=== PATIENT | male | born 1965 | race Caucasian/White ===

== ENCOUNTER 2024-04-10 20:57 | Inpatient (IN) | payer BC, MEDICARE ==
[~2024-04-10] VITALS: Ht 182.9 cm; Wt 136.8 kg
[2024-04-10 21:37] LABS: BASOPHILS % (AUTO) 0.3 % (0-1); EOSINOPHILS # (AUTO) 0.2 X10'3 (0-0.9); EOSINOPHILS % (AUTO) 1.4 % (0-6); HEMATOCRIT 32.1 % (42.0-52.0); HEMOGLOBIN 9.8 g/dl (14.0-17.9); LYMPHOCYTES # (AUTO) 1.9 X10'3 (1.1-4.8); LYMPHOCYTES % (AUTO) 15.6 % (21-51); MEAN CORPUSCULAR HEMOGLOBIN 23.4 PG (27.0-31.0); MEAN CORPUSCULAR HGB CONC 30.6 g/dL (33.0-36.5); MEAN CORPUSCULAR VOLUME 76.7 FL (78-98); MEAN PLATELET VOLUME 6.5 FL (7.4-10.4); MONOCYTES # (AUTO) 1.2 X10'3 (0-0.9); MONOCYTES % (AUTO) 9.4 % (2-12); NEUTROPHILS # (AUTO) 9.2 X10'3 (1.8-7.7); NEUTROPHILS % (AUTO) 73.3 % (42-75); PLATELET COUNT 296 X10'3 (140-440); RED BLOOD COUNT 4.19 X10'6 (4.70-6.10); RED CELL DISTRIBUTION WIDTH 18.7 % (11.5-14.5); WHITE BLOOD COUNT 12.5 X10'3 (4.5-11.0)
[2024-04-10 21:53] LABS: ALANINE AMINOTRANSFERASE 17 U/L (12-78); ALBUMIN 2.5 G/DL (3.4-5.0); ALBUMIN/GLOBULIN RATIO 0.5 (1.1-1.5); ALKALINE PHOSPHATASE 87 IU/L (46-116); ANION GAP 8 (8-16); ASPARTATE AMINO TRANSFERASE 12 U/L (10-37); BILIRUBIN,TOTAL 0.3 MG/DL (0.1-1.0); BLOOD UREA NITROGEN 21 MG/DL (7-18); BUN/CREATININE RATIO 16.4 (10.0-20.0); CALCIUM 8.5 MG/DL (8.5-10.1); CHLORIDE 103 MMOL/L (99-107); CREATININE 1.28 MG/DL (0.60-1.10); GLUCOSE 93 MG/DL (70-104); MAGNESIUM 1.9 MG/DL (1.5-2.4); PHOSPHORUS 4.5 MG/DL (2.3-4.5); POTASSIUM 4.2 MMOL/L (3.5-5.1); SODIUM 139 MMOL/L (135-145); TOTAL CARBON DIOXIDE 28.1 MMOL/L (24-32); TOTAL PROTEIN 7.7 G/DL (6.4-8.2); eCRCL 64 ML/MIN; eGFR 58 ML/MIN
[2024-04-10] MEDS ORDERED: iohexol 300mg/ml 100ml inj. ONE (22:09)
[2024-04-10] MEDS: piperacillin/tazo 3.375gm/50ml 50 ML IV ONE (22:22)
[2024-04-10] MEDS ORDERED: GABA-530 PO (22:47)
[2024-04-10] MEDS ORDERED: QUET400T13 PO (22:47)
[2024-04-10] MEDS ORDERED: APIX5TAB3 PO (22:47)
[2024-04-10] MEDS ORDERED: DIVA-52 PO (22:47)
[2024-04-10] MEDS ORDERED: ASPI-1265 PO (22:47)
[2024-04-10] MEDS ORDERED: LISI20TA28 PO (22:47)
[2024-04-10] MEDS ORDERED: DULO-31 PO (22:47)
[2024-04-10] MEDS ORDERED: ATOR40TA PO (22:47)
[2024-04-10] MEDS ORDERED: MIRA50TA PO (22:47)
[2024-04-10] MEDS ORDERED: LOP25T PO (22:47)
[2024-04-10] MEDS ORDERED: BUME1TAB8 PO (22:47)
[2024-04-10] MEDS ORDERED: PANT-47 PO (22:47)
[2024-04-10 22:48] LABS: ANISOCYTOSIS 2+; MICROCYTOSIS 1+; PLATELET ESTIMATE NORMAL; POLYCHROMASIA FEW
[2024-04-10] MEDS: vancomycin/NS 1 GM ADD-VANTAGE 250 ML IV ONE (22:52)
[2024-04-10] MEDS ORDERED: ondansetron/PF 4mg/2ml inj IV PRN (23:10)
[2024-04-10] MEDS ORDERED: magnesium hydroxide 30ml (MOM) UD suspension PO PRN (23:10)
[2024-04-10] MEDS ORDERED: magnesium Cl slow-release 64mg tablet PO PRN (23:10)
[2024-04-10] MEDS ORDERED: potassium Cl 40MEQ/1/2NS 520ml 520 ML IV PRN (23:10)
[2024-04-10] MEDS ORDERED: acetaminophen 325mg tablet PO PRN (23:10)
[2024-04-10] MEDS ORDERED: magnesium 2GM in 50ml NS 50 ML IV PRN (23:10)
[2024-04-10] MEDS ORDERED: potassium Cl 20 mEq SR tablet PO PRN ×2 (23:10)
[2024-04-10] MEDS ORDERED: HYDROcodone/acetaminophen 5mg/325mg tablet PO PRN (23:10)
[2024-04-10] MEDS ORDERED: magnesium 4gm in 100ml NS 100 ML IV PRN (23:10)
[2024-04-10] MEDS ORDERED: morphine 2 MG/ML inj. syringe IV PRN ×2 (23:10)
[2024-04-10] MEDS: normal saline 1000ml 1,000 ML IV ONE (23:33)
[2024-04-11] VITALS (8 sets, daily range): BP systolic 142–156; BP diastolic 51–64; PULSE 53–90; RESP 16–18; TEMP 97–98.2; O2SAT 93–96
[2024-04-11] MEDS: vancomycin/NS 1 GM ADD-VANTAGE 250 ML IV ONE (00:06)
[2024-04-11] MEDS: normal saline 1000ml 1,000 ML IV SCH (01:45)
[2024-04-11] MEDS: piperacillin/tazo 4.5gm/100ml 100 ML IV SCH (05:35)
[2024-04-11] MEDS: K and/or MAG REPLACEMENT MC SCH (08:00)
[2024-04-11] MEDS: apixaban 5mg tablet PO SCH (08:00)
[2024-04-11] MEDS ORDERED: vancomycin/NS 1 GM ADD-VANTAGE 250 ML IV SCH ×2 (08:00→09:04)
[2024-04-11 08:15] LABS: APTT 34 SECONDS (22-32); INR 1.1 INR; PROTHROMBIN TIME 11.6 SECONDS (9.0-12.0)
[2024-04-11 08:28] LABS: BASOPHILS % (AUTO) 0.3 % (0-1); EOSINOPHILS # (AUTO) 0.2 X10'3 (0-0.9); EOSINOPHILS % (AUTO) 1.9 % (0-6); HEMOGLOBIN 9.8 g/dl (14.0-17.9); LYMPHOCYTES # (AUTO) 1.5 X10'3 (1.1-4.8); LYMPHOCYTES % (AUTO) 16.7 % (21-51); MEAN CORPUSCULAR HEMOGLOBIN 23.7 PG (27.0-31.0); MEAN CORPUSCULAR HGB CONC 30.6 g/dL (33.0-36.5); MEAN CORPUSCULAR VOLUME 77.4 FL (78-98); MEAN PLATELET VOLUME 6.7 FL (7.4-10.4); MONOCYTES # (AUTO) 0.8 X10'3 (0-0.9); MONOCYTES % (AUTO) 8.4 % (2-12); NEUTROPHILS # (AUTO) 6.6 X10'3 (1.8-7.7); NEUTROPHILS % (AUTO) 72.7 % (42-75); PLATELET COUNT 279 X10'3 (140-440); RED BLOOD COUNT 4.13 X10'6 (4.70-6.10); RED CELL DISTRIBUTION WIDTH 18.9 % (11.5-14.5)
[2024-04-11 08:50] LABS: ALANINE AMINOTRANSFERASE 15 U/L (12-78); ALBUMIN 2.4 G/DL (3.4-5.0); ALBUMIN/GLOBULIN RATIO 0.5 (1.1-1.5); ALKALINE PHOSPHATASE 82 IU/L (46-116); ANION GAP 11 (8-16); ASPARTATE AMINO TRANSFERASE 15 U/L (10-37); BILIRUBIN,TOTAL 0.4 MG/DL (0.1-1.0); BLOOD UREA NITROGEN 21 MG/DL (7-18); BUN/CREATININE RATIO 20.8 (10.0-20.0); CALCIUM 8.3 MG/DL (8.5-10.1); CHLORIDE 105 MMOL/L (99-107); CREATININE 1.01 MG/DL (0.60-1.10); GLUCOSE 87 MG/DL (70-104); PHOSPHORUS 4.3 MG/DL (2.3-4.5); SODIUM 142 MMOL/L (135-145); TOTAL CARBON DIOXIDE 26.3 MMOL/L (24-32); TOTAL PROTEIN 7.2 G/DL (6.4-8.2); eCRCL 81 ML/MIN; eGFR 76 ML/MIN
[2024-04-11 08:53] LABS: % IRON SATURATION 7 % (11-46); IRON 19 UG/DL (53-167); TOTAL IRON BINDING CAPACITY 260 UG/DL (259-388)
[2024-04-11] MEDS: vancomycin/NS 1 GM ADD-VANTAGE 250 ML IV SCH (09:06)
[2024-04-11 09:09] LABS: FERRITIN 17 NG/ML (26-388)
[2024-04-11] MEDS ORDERED: cloNIDine 0.1 mg tablet PO PRN (11:45)
[2024-04-11] MEDS: HYDROcodone/acetaminophen 10/325mg tab PO PRN (13:11)
[2024-04-11] MEDS: NICOTINE POLACRILEX 2 MG LOZENGE BC PRN (15:24)
[2024-04-11] MEDS ORDERED: CETI10CA PO (15:56)
[2024-04-11] MEDS ORDERED: MORP15TA60 PO (15:56)
[2024-04-11] MEDS ORDERED: DULA1.5P SUBCUT (15:56)
[2024-04-11] MEDS ORDERED: METO-395 PO (15:56)
[2024-04-11] MEDS ORDERED: METF-900 PO (15:56)
[2024-04-11] MEDS ORDERED: MULT-1085 PO (15:56)
[2024-04-11] MEDS ORDERED: DOCU-148 PO (15:56)
[2024-04-11] MEDS ORDERED: PANT-47 PO (15:56)
[2024-04-11] MEDS ORDERED: OXYC-150 PO (15:56)
[2024-04-11] MEDS ORDERED: BACL10TA PO (15:56)
[2024-04-11] MEDS ORDERED: INSU300I SQ (15:56)
[2024-04-12] MEDS: VANCOMYCIN LEVEL IV ONE (01:05)
[2024-04-12 01:44] VITALS: BP 150/67; PULSE 69; RESP 16; TEMP 98.6; O2SAT 97
[2024-04-12 06:00] VITALS: BP 126/66; PULSE 57; RESP 18; TEMP 96.8; O2SAT 97
[2024-04-12 07:34] LABS: BASOPHILS % (AUTO) 0.4 % (0-1); EOSINOPHILS # (AUTO) 0.1 X10'3 (0-0.9); EOSINOPHILS % (AUTO) 1.5 % (0-6); HEMATOCRIT 31.7 % (42.0-52.0); HEMOGLOBIN 9.9 g/dl (14.0-17.9); LYMPHOCYTES # (AUTO) 1.6 X10'3 (1.1-4.8); LYMPHOCYTES % (AUTO) 19.2 % (21-51); MEAN CORPUSCULAR HEMOGLOBIN 23.6 PG (27.0-31.0); MEAN CORPUSCULAR HGB CONC 31.1 g/dL (33.0-36.5); MEAN CORPUSCULAR VOLUME 75.9 FL (78-98); MEAN PLATELET VOLUME 6.8 FL (7.4-10.4); MONOCYTES # (AUTO) 0.6 X10'3 (0-0.9); MONOCYTES % (AUTO) 7.9 % (2-12); NEUTROPHILS # (AUTO) 5.8 X10'3 (1.8-7.7); PLATELET COUNT 288 X10'3 (140-440); RED BLOOD COUNT 4.17 X10'6 (4.70-6.10); RED CELL DISTRIBUTION WIDTH 19.1 % (11.5-14.5); WHITE BLOOD COUNT 8.1 X10'3 (4.5-11.0)
[2024-04-12 07:39] LABS: APTT 33 SECONDS (22-32); INR 1.1 INR; PROTHROMBIN TIME 11.6 SECONDS (9.0-12.0)
[2024-04-12 07:54] LABS: ALANINE AMINOTRANSFERASE 17 U/L (12-78); ALBUMIN 2.4 G/DL (3.4-5.0); ALBUMIN/GLOBULIN RATIO 0.5 (1.1-1.5); ALKALINE PHOSPHATASE 78 IU/L (46-116); ANION GAP 11 (8-16); ASPARTATE AMINO TRANSFERASE 14 U/L (10-37); BILIRUBIN,TOTAL 0.5 MG/DL (0.1-1.0); BLOOD UREA NITROGEN 11 MG/DL (7-18); BUN/CREATININE RATIO 12.2 (10.0-20.0); CALCIUM 8.6 MG/DL (8.5-10.1); CHLORIDE 103 MMOL/L (99-107); GLUCOSE 100 MG/DL (70-104); MAGNESIUM 1.9 MG/DL (1.5-2.4); PHOSPHORUS 3.2 MG/DL (2.3-4.5); POTASSIUM 4.2 MMOL/L (3.5-5.1); SODIUM 137 MMOL/L (135-145); TOTAL CARBON DIOXIDE 23.1 MMOL/L (24-32); TOTAL PROTEIN 7.3 G/DL (6.4-8.2); eCRCL 54 ML/MIN; eGFR 86 ML/MIN
[2024-04-12] MEDS: vancomycin/NS 1 GM ADD-VANTAGE 250 ML IV SCH (12:00)
[2024-04-12] MEDS: DULAGLUTIDE 1.5 MG/0.5 ML SQ SCH (12:40)
[2024-04-12] MEDS: PERFLUTREN PROTEIN-A MICROSPHR (Optison) 0.22 MG/ML 3ML VIAL IV ONE (12:45)
[2024-04-12] MEDS: duloxetine 30mg CAPSULE.DR PO SCH (13:36)
[2024-04-12] MEDS: oxyCODONE/APAP 10/325mg tablet PO PRN (13:36)
[2024-04-12] MEDS: lisinopril 20mg tablet PO SCH (13:36)
[2024-04-12] MEDS ORDERED: gabapentin 100mg capsule PO SCH (16:00)
[2024-04-12] MEDS: baclofen 10mg tablet PO SCH (16:42)
[2024-04-12 18:00] VITALS: BP_SYST 102; BP_SYST 161; BP_DIAS 61; BP_DIAS 64; PULSE 52; PULSE 82; RESP 18; RESP 20; TEMP 96.6; TEMP 97; O2SAT 90; O2SAT 98
[2024-04-12 20:00] VITALS: RESP 18; O2SAT 98
[2024-04-12] MEDS: METFORMIN HCL 500 MG PO SCH (20:00)
[2024-04-12] MEDS: bumetanide 1mg tablet PO SCH (21:53)
[2024-04-12] MEDS: quetiapine 100mg tablet PO SCH (21:53)
[2024-04-12] MEDS: divalproex sodium 500mg tablet.DR PO SCH (21:54)
[2024-04-12] MEDS: apixaban 5mg tablet PO SCH (21:54)
[2024-04-12 22:00] VITALS: BP_SYST 102; BP_SYST 161; BP_DIAS 61; BP_DIAS 64; PULSE 52; PULSE 82; RESP 18; RESP 20; TEMP 96.6; TEMP 97; O2SAT 98
[2024-04-13] VITALS (8 sets, daily range): BP systolic 130–160; BP diastolic 7–76; PULSE 60–76; RESP 14–20; TEMP 96.4–97.8; O2SAT 92–98
[2024-04-13] MEDS: gabapentin 300mg capsule PO SCH (01:37)
[2024-04-13 07:29] LABS: BASOPHILS % (AUTO) 0.4 % (0-1); EOSINOPHILS # (AUTO) 0.1 X10'3 (0-0.9); EOSINOPHILS % (AUTO) 1.6 % (0-6); LYMPHOCYTES # (AUTO) 1.5 X10'3 (1.1-4.8); LYMPHOCYTES % (AUTO) 19.4 % (21-51); MEAN PLATELET VOLUME 6.7 FL (7.4-10.4); MONOCYTES # (AUTO) 0.8 X10'3 (0-0.9); MONOCYTES % (AUTO) 9.7 % (2-12); NEUTROPHILS # (AUTO) 5.4 X10'3 (1.8-7.7); NEUTROPHILS % (AUTO) 68.9 % (42-75); RED CELL DISTRIBUTION WIDTH 18.9 % (11.5-14.5)
[2024-04-13] MEDS: multivitamins, therapeutics tablet PO SCH (07:41)
[2024-04-13] MEDS: pantoprazole 40mg Tablet.DR PO SCH (07:41)
[2024-04-13] MEDS: metoprolol succinate 25mg (24-HOUR) SR. Tablet PO SCH (07:42)
[2024-04-13] MEDS: aspirin 81mg tab.chew PO SCH (07:42)
[2024-04-13] MEDS: atorvastatin 20mg tablet PO SCH (07:42)
[2024-04-13] MEDS: cetirizine 10mg tablet PO SCH (07:43)
[2024-04-13 07:45] LABS: WHITE BLOOD COUNT 8.2 X10'3 (4.5-11.0)
[2024-04-13 07:46] LABS: HEMATOCRIT 33.5 % (42.0-52.0); HEMOGLOBIN 10.6 g/dl (14.0-17.9); MEAN CORPUSCULAR HEMOGLOBIN 24.1 PG (27.0-31.0); MEAN CORPUSCULAR HGB CONC 31.8 g/dL (33.0-36.5); MEAN CORPUSCULAR VOLUME 75.9 FL (78-98); PLATELET COUNT 239 X10'3 (140-440); RED BLOOD COUNT 4.42 X10'6 (4.70-6.10)
[2024-04-13] MEDS: MIRABEGRON 50 MG PO SCH (07:47)
[2024-04-13] MEDS: insulin glargine (Lantus) pen - multi-dose SQ SCH (07:47)
[2024-04-13 10:38] LABS: BILIRUBIN,URINE NEGATIVE (Neg); CLARITY,URINE CLEAR (Clear); COLOR,URINE YELLOW (Yellow); GLUCOSE, URINE NEGATIVE (Neg); KETONES,URINE TRACE mg/dl (Neg); LEUKOCYTE ESTERASE ,URINE NEGATIVE (Neg); NITRITES, URINE NEGATIVE (Neg); OCCULT BLOOD,URINE NEGATIVE (Neg); PROTEIN,URINE NEGATIVE (Neg); UROBILINOGEN,URINE 0.2 E.U/dL (0.2-1.0)
[2024-04-13 10:40] LABS: UA COLLECTION TYPE NON-SPECIFIED
[2024-04-13 10:42] LABS: URINE AMPHETAMINE SCREEN NEGATIVE (Neg); URINE BARBITUATE SCREEN NEGATIVE (Neg); URINE BENZODIAZEPINES SCREEN NEGATIVE (Neg); URINE CANNABINOID SCREEN POSITIVE (Neg); URINE COCAINE SCREEN NEGATIVE (Neg); URINE METHADONE SCREEN NEGATIVE (Neg); URINE OPIATE SCREEN POSITIVE (Neg); URINE PHENCYCLIDINE SCREEN NEGATIVE (Neg)
[2024-04-13] MEDS: JUVEN Shake w/Arg/Glut/Ca2+Bmb (Juven 19.3gm) pkt 240ml PO SCH (17:34)
[2024-04-13 17:35] LABS: APTT 31 SECONDS (22-32); INR 1.1 INR
[2024-04-13 17:43] LABS: ALANINE AMINOTRANSFERASE 21 U/L (12-78); ALBUMIN 2.5 G/DL (3.4-5.0); ALBUMIN/GLOBULIN RATIO 0.5 (1.1-1.5); ALKALINE PHOSPHATASE 80 IU/L (46-116); ANION GAP 11 (8-16); ASPARTATE AMINO TRANSFERASE 18 U/L (10-37); BILIRUBIN,TOTAL 0.3 MG/DL (0.1-1.0); BLOOD UREA NITROGEN 6 MG/DL (7-18); BUN/CREATININE RATIO 5.6 (10.0-20.0); CALCIUM 8.3 MG/DL (8.5-10.1); CHLORIDE 104 MMOL/L (99-107); CREATININE 1.07 MG/DL (0.60-1.10); GLUCOSE 159 MG/DL (70-104); MAGNESIUM 1.8 MG/DL (1.5-2.4); PHOSPHORUS 3.5 MG/DL (2.3-4.5); POTASSIUM 3.5 MMOL/L (3.5-5.1); PRO BRAIN NATRIURETIC PEPTIDE 1161 PG/ML (0-125); SODIUM 139 MMOL/L (135-145); TOTAL CARBON DIOXIDE 23.9 MMOL/L (24-32); TOTAL PROTEIN 7.3 G/DL (6.4-8.2); eCRCL 45 ML/MIN; eGFR 71 ML/MIN
[2024-04-13 17:45] LABS: HEMOGLOBIN A1C 6.5 % (4.5-6.2)
[2024-04-13 17:47] LABS: PROTHROMBIN TIME 11.9 SECONDS (9.0-12.0)
[2024-04-13] MEDS ORDERED: dextrose 50%-water 50ml dispensing syringe IV PRN ×2 (17:55)
[2024-04-13] MEDS ORDERED: glucagon, human recombinant 1mg kit SUBCUT PRN (17:55)
[2024-04-13] MEDS ORDERED: DEXTROSE 15 GM of carb/4 tabs (each vial/BOTTLE has 4 tablets) PO PRN ×2 (17:55)
[2024-04-13] MEDS: lactose-reduced food (Ensure Enlive) - 237ml bottle PO SCH (18:03)
[2024-04-13] MEDS: VANCOMYCIN LEVEL IV ONE (20:59)
[2024-04-13] MEDS: INSULIN LISPRO 100 UNIT/ML INSULN.PEN MULTI-DOSE SQ SCH (21:00)
[2024-04-14] VITALS (7 sets, daily range): BP systolic 100–151; BP diastolic 53–72; PULSE 52–82; RESP 12–20; TEMP 97–98.2; O2SAT 66–97
[2024-04-14] MEDS: mirabegron 25mg ER tablet PO SCH (07:34)
[2024-04-14 09:21] LABS: INR 1.2 INR; PROTHROMBIN TIME 12.3 SECONDS (9.0-12.0)
[2024-04-14 09:24] LABS: ALANINE AMINOTRANSFERASE 20 U/L (12-78); ALBUMIN 2.5 G/DL (3.4-5.0); ALBUMIN/GLOBULIN RATIO 0.5 (1.1-1.5); ALKALINE PHOSPHATASE 77 IU/L (46-116); ANION GAP 9 (8-16); ASPARTATE AMINO TRANSFERASE 19 U/L (10-37); BILIRUBIN,TOTAL 0.4 MG/DL (0.1-1.0); BLOOD UREA NITROGEN 5 MG/DL (7-18); BUN/CREATININE RATIO 4.9 (10.0-20.0); CALCIUM 8.7 MG/DL (8.5-10.1); CHLORIDE 106 MMOL/L (99-107); CREATININE 1.03 MG/DL (0.60-1.10); GLUCOSE 146 MG/DL (70-104); PHOSPHORUS 4.5 MG/DL (2.3-4.5); POTASSIUM 3.5 MMOL/L (3.5-5.1); SODIUM 143 MMOL/L (135-145); TOTAL CARBON DIOXIDE 28.2 MMOL/L (24-32); TOTAL PROTEIN 7.4 G/DL (6.4-8.2); eCRCL 85 ML/MIN; eGFR 74 ML/MIN
[2024-04-14] MEDS: VANCOMYCIN LEVEL IV ONE (09:25)
[2024-04-14 10:04] LABS: BASOPHILS % (AUTO) 0.4 % (0-1); EOSINOPHILS # (AUTO) 0.2 X10'3 (0-0.9); EOSINOPHILS % (AUTO) 2.1 % (0-6); HEMATOCRIT 35.1 % (42.0-52.0); HEMOGLOBIN 10.7 g/dl (14.0-17.9); LYMPHOCYTES # (AUTO) 2.1 X10'3 (1.1-4.8); LYMPHOCYTES % (AUTO) 22.6 % (21-51); MEAN CORPUSCULAR HEMOGLOBIN 23.4 PG (27.0-31.0); MEAN CORPUSCULAR HGB CONC 30.5 g/dL (33.0-36.5); MEAN CORPUSCULAR VOLUME 76.8 FL (78-98); MEAN PLATELET VOLUME 6.6 FL (7.4-10.4); MONOCYTES # (AUTO) 0.8 X10'3 (0-0.9); MONOCYTES % (AUTO) 8.7 % (2-12); NEUTROPHILS # (AUTO) 6.2 X10'3 (1.8-7.7); NEUTROPHILS % (AUTO) 66.2 % (42-75); PLATELET COUNT 270 X10'3 (140-440); RED BLOOD COUNT 4.58 X10'6 (4.70-6.10); RED CELL DISTRIBUTION WIDTH 18.7 % (11.5-14.5); WHITE BLOOD COUNT 9.3 X10'3 (4.5-11.0)
[2024-04-14] MEDS: VANCOMYCIN 750MG IV in NS 250 ML IV SCH (10:08)
[2024-04-14 12:35] LABS: ANISOCYTOSIS 2+; PLATELET ESTIMATE NORMAL
[2024-04-14 12:36] LABS: MICROCYTOSIS 1+
[2024-04-14 12:37] LABS: ELLIPTOCYTES FEW; STOMATOCYTES FEW
[2024-04-14] MEDS: Dakins solution (1/4 strength) 473ml solution TP SCH (19:53)
[2024-04-15] VITALS (7 sets, daily range): BP systolic 127–146; BP diastolic 45–62; PULSE 60–85; RESP 16–20; TEMP 97.2–97.5; O2SAT 95–99
[2024-04-15 05:57] LABS: BASOPHILS # (AUTO) 0.1 X10'3 (0-0.2); BASOPHILS % (AUTO) 0.5 % (0-1); EOSINOPHILS # (AUTO) 0.3 X10'3 (0-0.9); EOSINOPHILS % (AUTO) 2.3 % (0-6); HEMATOCRIT 32.5 % (42.0-52.0); LYMPHOCYTES # (AUTO) 3.1 X10'3 (1.1-4.8); LYMPHOCYTES % (AUTO) 27.6 % (21-51); MEAN CORPUSCULAR HEMOGLOBIN 23.5 PG (27.0-31.0); MEAN CORPUSCULAR HGB CONC 30.7 g/dL (33.0-36.5); MEAN CORPUSCULAR VOLUME 76.7 FL (78-98); MEAN PLATELET VOLUME 7.1 FL (7.4-10.4); MONOCYTES # (AUTO) 0.9 X10'3 (0-0.9); MONOCYTES % (AUTO) 8.2 % (2-12); NEUTROPHILS # (AUTO) 6.9 X10'3 (1.8-7.7); NEUTROPHILS % (AUTO) 61.4 % (42-75); PLATELET COUNT 262 X10'3 (140-440); RED BLOOD COUNT 4.24 X10'6 (4.70-6.10); RED CELL DISTRIBUTION WIDTH 18.9 % (11.5-14.5); WHITE BLOOD COUNT 11.2 X10'3 (4.5-11.0)
[2024-04-15 06:04] LABS: INR 1.1 INR; PROTHROMBIN TIME 11.9 SECONDS (9.0-12.0)
[2024-04-15 06:22] LABS: ALANINE AMINOTRANSFERASE 14 U/L (12-78); ALBUMIN 2.2 G/DL (3.4-5.0); ALBUMIN/GLOBULIN RATIO 0.5 (1.1-1.5); ALKALINE PHOSPHATASE 64 IU/L (46-116); ANION GAP 11 (8-16); ASPARTATE AMINO TRANSFERASE 18 U/L (10-37); BILIRUBIN,TOTAL 0.4 MG/DL (0.1-1.0); BLOOD UREA NITROGEN 12 MG/DL (7-18); BUN/CREATININE RATIO 11.9 (10.0-20.0); CALCIUM 8.6 MG/DL (8.5-10.1); CHLORIDE 107 MMOL/L (99-107); CREATININE 1.01 MG/DL (0.60-1.10); GLUCOSE 131 MG/DL (70-104); PHOSPHORUS 4.4 MG/DL (2.3-4.5); POTASSIUM 3.5 MMOL/L (3.5-5.1); SODIUM 142 MMOL/L (135-145); TOTAL CARBON DIOXIDE 23.8 MMOL/L (24-32); TOTAL PROTEIN 6.8 G/DL (6.4-8.2); eCRCL 86 ML/MIN; eGFR 76 ML/MIN
[2024-04-15] MEDS: VANCOMYCIN LEVEL IV ONE (21:30)
[2024-04-16] VITALS (9 sets, daily range): BP systolic 78–162; BP diastolic 43–79; PULSE 47–58; RESP 16–21; TEMP 96.8–98.7; O2SAT 94–100
[2024-04-16 12:04] LABS: BASOPHILS % (AUTO) 0.3 % (0-1); EOSINOPHILS # (AUTO) 0.3 X10'3 (0-0.9); EOSINOPHILS % (AUTO) 2.7 % (0-6); HEMATOCRIT 32.6 % (42.0-52.0); LYMPHOCYTES % (AUTO) 18.3 % (21-51); MEAN CORPUSCULAR HEMOGLOBIN 23.6 PG (27.0-31.0); MEAN CORPUSCULAR HGB CONC 30.7 g/dL (33.0-36.5); MEAN CORPUSCULAR VOLUME 77.1 FL (78-98); MONOCYTES # (AUTO) 0.7 X10'3 (0-0.9); MONOCYTES % (AUTO) 6.6 % (2-12); NEUTROPHILS # (AUTO) 7.8 X10'3 (1.8-7.7); NEUTROPHILS % (AUTO) 72.1 % (42-75); PLATELET COUNT 231 X10'3 (140-440); RED BLOOD COUNT 4.22 X10'6 (4.70-6.10); RED CELL DISTRIBUTION WIDTH 18.5 % (11.5-14.5); WHITE BLOOD COUNT 10.9 X10'3 (4.5-11.0)
[2024-04-16 12:17] LABS: ALANINE AMINOTRANSFERASE 16 U/L (12-78); ALBUMIN 2.4 G/DL (3.4-5.0); ALBUMIN/GLOBULIN RATIO 0.5 (1.1-1.5); ALKALINE PHOSPHATASE 69 IU/L (46-116); ANION GAP 8 (8-16); ASPARTATE AMINO TRANSFERASE 20 U/L (10-37); BILIRUBIN,TOTAL 0.3 MG/DL (0.1-1.0); BLOOD UREA NITROGEN 14 MG/DL (7-18); BUN/CREATININE RATIO 13.5 (10.0-20.0); CALCIUM 8.6 MG/DL (8.5-10.1); CHLORIDE 105 MMOL/L (99-107); CREATININE 1.04 MG/DL (0.60-1.10); GLUCOSE 196 MG/DL (70-104); POTASSIUM 3.7 MMOL/L (3.5-5.1); SODIUM 139 MMOL/L (135-145); TOTAL CARBON DIOXIDE 26.2 MMOL/L (24-32); TOTAL PROTEIN 7.1 G/DL (6.4-8.2); eCRCL 84 ML/MIN; eGFR 73 ML/MIN
[2024-04-16] MEDS: acetaminophen 325mg tablet PO PRN (15:47)
[2024-04-17 06:00] VITALS: BP 136/55; PULSE 53; RESP 14; TEMP 97.5; O2SAT 94
[2024-04-17 06:21] LABS: BASOPHILS % (AUTO) 0.5 % (0-1); EOSINOPHILS # (AUTO) 0.4 X10'3 (0-0.9); EOSINOPHILS % (AUTO) 3.9 % (0-6); HEMATOCRIT 29.8 % (42.0-52.0); HEMOGLOBIN 9.3 g/dl (14.0-17.9); LYMPHOCYTES # (AUTO) 2.3 X10'3 (1.1-4.8); MEAN CORPUSCULAR HEMOGLOBIN 23.6 PG (27.0-31.0); MEAN CORPUSCULAR VOLUME 76.1 FL (78-98); MONOCYTES # (AUTO) 0.7 X10'3 (0-0.9); MONOCYTES % (AUTO) 7.1 % (2-12); NEUTROPHILS # (AUTO) 6.5 X10'3 (1.8-7.7); NEUTROPHILS % (AUTO) 65.5 % (42-75); PLATELET COUNT 224 X10'3 (140-440); RED BLOOD COUNT 3.92 X10'6 (4.70-6.10); RED CELL DISTRIBUTION WIDTH 18.5 % (11.5-14.5)
[2024-04-17 06:48] LABS: ALANINE AMINOTRANSFERASE 16 U/L (12-78); ALBUMIN 2.2 G/DL (3.4-5.0); ALBUMIN/GLOBULIN RATIO 0.5 (1.1-1.5); ALKALINE PHOSPHATASE 54 IU/L (46-116); ANION GAP 8 (8-16); ASPARTATE AMINO TRANSFERASE 11 U/L (10-37); BILIRUBIN,TOTAL 0.2 MG/DL (0.1-1.0); BLOOD UREA NITROGEN 16 MG/DL (7-18); CALCIUM 8.5 MG/DL (8.5-10.1); CHLORIDE 107 MMOL/L (99-107); GLUCOSE 145 MG/DL (70-104); POTASSIUM 3.7 MMOL/L (3.5-5.1); SODIUM 141 MMOL/L (135-145); TOTAL PROTEIN 6.6 G/DL (6.4-8.2); eCRCL 87 ML/MIN; eGFR 76 ML/MIN
[2024-04-17 08:00] VITALS: RESP 16; O2SAT 56
[2024-04-17 11:00] VITALS: BP 142/55; PULSE 58; RESP 16; TEMP 97.4; O2SAT 97
[2024-04-17] MEDS ORDERED: midazolam 1 mg/ML 2ml injection ONE (12:53)
[2024-04-17 18:00] VITALS: PULSE 59; RESP 18; TEMP 97; O2SAT 99
[2024-04-17 19:34] LABS: OCCULT BLOOD STOOL NEGATIVE (Neg)
[2024-04-17 20:00] VITALS: RESP 20; O2SAT 96
[2024-04-17 22:00] VITALS: BP 153/60; PULSE 66; RESP 20; TEMP 97; O2SAT 96
[2024-04-18] VITALS (9 sets, daily range): BP systolic 108–175; BP diastolic 59–73; PULSE 55–68; RESP 14–22; TEMP 96.2–98.5; O2SAT 95–97
[2024-04-18 06:48] LABS: BASOPHILS % (AUTO) 0.4 % (0-1); EOSINOPHILS # (AUTO) 0.4 X10'3 (0-0.9); EOSINOPHILS % (AUTO) 3.7 % (0-6); HEMATOCRIT 31.4 % (42.0-52.0); HEMOGLOBIN 9.8 g/dl (14.0-17.9); LYMPHOCYTES # (AUTO) 2.8 X10'3 (1.1-4.8); MEAN CORPUSCULAR HEMOGLOBIN 23.7 PG (27.0-31.0); MEAN CORPUSCULAR HGB CONC 31.2 g/dL (33.0-36.5); MEAN PLATELET VOLUME 7.4 FL (7.4-10.4); MONOCYTES # (AUTO) 0.8 X10'3 (0-0.9); MONOCYTES % (AUTO) 6.9 % (2-12); NEUTROPHILS # (AUTO) 7.1 X10'3 (1.8-7.7); PLATELET COUNT 219 X10'3 (140-440); RED BLOOD COUNT 4.13 X10'6 (4.70-6.10); WHITE BLOOD COUNT 11.1 X10'3 (4.5-11.0)
[2024-04-18 07:25] LABS: ALANINE AMINOTRANSFERASE 16 U/L (12-78); ALBUMIN 2.4 G/DL (3.4-5.0); ALBUMIN/GLOBULIN RATIO 0.5 (1.1-1.5); ALKALINE PHOSPHATASE 60 IU/L (46-116); ANION GAP 10 (8-16); ASPARTATE AMINO TRANSFERASE 11 U/L (10-37); BILIRUBIN,TOTAL 0.2 MG/DL (0.1-1.0); BLOOD UREA NITROGEN 21 MG/DL (7-18); BUN/CREATININE RATIO 23.6 (10.0-20.0); CALCIUM 8.5 MG/DL (8.5-10.1); CHLORIDE 104 MMOL/L (99-107); CREATININE 0.89 MG/DL (0.60-1.10); GLUCOSE 149 MG/DL (70-104); POTASSIUM 3.8 MMOL/L (3.5-5.1); SODIUM 140 MMOL/L (135-145); TOTAL CARBON DIOXIDE 26.1 MMOL/L (24-32); TOTAL PROTEIN 6.9 G/DL (6.4-8.2); eCRCL 98 ML/MIN; eGFR 87 ML/MIN
[2024-04-18] MEDS ORDERED: LORazepam 2 mg/ml vial IV ONE (17:15)
[2024-04-19 06:00] VITALS: BP 130/68; PULSE 65; RESP 18; TEMP 97.7; O2SAT 96
[2024-04-19 06:21] LABS: BASOPHILS % (AUTO) 0.4 % (0-1); EOSINOPHILS # (AUTO) 0.4 X10'3 (0-0.9); EOSINOPHILS % (AUTO) 3.6 % (0-6); HEMATOCRIT 31.9 % (42.0-52.0); HEMOGLOBIN 9.9 g/dl (14.0-17.9); LYMPHOCYTES # (AUTO) 2.6 X10'3 (1.1-4.8); LYMPHOCYTES % (AUTO) 25.7 % (21-51); MEAN CORPUSCULAR HEMOGLOBIN 23.8 PG (27.0-31.0); MEAN CORPUSCULAR HGB CONC 31.2 g/dL (33.0-36.5); MEAN CORPUSCULAR VOLUME 76.2 FL (78-98); MEAN PLATELET VOLUME 7.6 FL (7.4-10.4); MONOCYTES # (AUTO) 0.8 X10'3 (0-0.9); MONOCYTES % (AUTO) 7.9 % (2-12); NEUTROPHILS # (AUTO) 6.3 X10'3 (1.8-7.7); NEUTROPHILS % (AUTO) 62.4 % (42-75); PLATELET COUNT 213 X10'3 (140-440); RED BLOOD COUNT 4.18 X10'6 (4.70-6.10); WHITE BLOOD COUNT 10.1 X10'3 (4.5-11.0)
[2024-04-19 06:34] LABS: ALANINE AMINOTRANSFERASE 19 U/L (12-78); ALBUMIN 2.5 G/DL (3.4-5.0); ALBUMIN/GLOBULIN RATIO 0.6 (1.1-1.5); ALKALINE PHOSPHATASE 66 IU/L (46-116); ANION GAP 7 (8-16); ASPARTATE AMINO TRANSFERASE 13 U/L (10-37); BILIRUBIN,TOTAL 0.3 MG/DL (0.1-1.0); BLOOD UREA NITROGEN 24 MG/DL (7-18); BUN/CREATININE RATIO 26.7 (10.0-20.0); CALCIUM 8.6 MG/DL (8.5-10.1); CHLORIDE 104 MMOL/L (99-107); GLUCOSE 156 MG/DL (70-104); SODIUM 138 MMOL/L (135-145); TOTAL CARBON DIOXIDE 26.8 MMOL/L (24-32); eCRCL 97 ML/MIN; eGFR 86 ML/MIN
[2024-04-19 07:53] VITALS: PULSE 62; RESP 10; O2SAT 94
[2024-04-19 09:17] LABS: C-REACTIVE PROTEIN 1.44 MG/DL (0.0-0.5)
[2024-04-19 11:00] VITALS: BP_SYST 130; BP_SYST 136; BP_DIAS 58; BP_DIAS 68; PULSE 75; RESP 18; RESP 19; TEMP 98.2; O2SAT 96
[2024-04-19] MEDS ORDERED: OXYC1TAB17 PO (13:08)
[2024-04-19] MEDS ORDERED: GABA-530 PO (13:36)
[2024-04-19] MEDS ORDERED: QUET400T13 PO (13:36)
[2024-04-19] MEDS ORDERED: BUME1TAB8 PO (13:36)
[2024-04-19] MEDS ORDERED: LISI20TA28 PO (13:36)
[2024-04-19] MEDS ORDERED: APIX5TAB3 PO (13:36)
[2024-04-19] MEDS ORDERED: DOCU-148 PO (13:36)
[2024-04-19] MEDS ORDERED: MULT-1085 PO (13:36)
[2024-04-19] MEDS ORDERED: DIVA-52 PO (13:36)
[2024-04-19] MEDS ORDERED: METO-395 PO (13:36)
[2024-04-19] MEDS ORDERED: ATOR40TA PO (13:36)
[2024-04-19] MEDS ORDERED: NICO-907 BC (13:36)
[2024-04-19] MEDS ORDERED: INSU300I SQ (13:36)
[2024-04-19] MEDS ORDERED: SODI473S20 TP (13:36)
[2024-04-19] MEDS ORDERED: CETI10CA PO (13:36)
[2024-04-19] MEDS ORDERED: ASPI-1265 PO (13:36)
[2024-04-19] MEDS ORDERED: MAGN400O6 PO (13:36)
[2024-04-19] MEDS ORDERED: DULO-31 PO (13:36)
[2024-04-19] MEDS ORDERED: BACL10TA PO (13:36)
[2024-04-19] MEDS ORDERED: CLON0.1T2 PO (13:36)
[2024-04-19] MEDS ORDERED: METF-900 PO (13:36)
[2024-04-20] MEDS ORDERED: lactose-reduced food (Ensure Enlive) - 237ml bottle PO SCH (07:30)
== END 2024-04-19 16:00 | disposition home or self-care (01) | DRG 871 ==
LOC: ER 20:58 → ED HOLD 23:10 → PCU 3S 04-11 02:17
PROVIDERS: ADMIT Internal Medicine Critical Care Medicine; ATTEND Internal Medicine
PROC: BW211ZZ Computerized Tomography (CT Scan) of Abdomen and Pelvis using Low Osmolar Contrast (ICD-10-PCS; principal; 2024-04-10)
PROC: 5A09357 Assistance with Respiratory Ventilation, Less than 24 Consecutive Hours, Continuous Positive Airway Pressure (ICD-10-PCS; 2024-04-11)
PROC: 5A09357 Assistance with Respiratory Ventilation, Less than 24 Consecutive Hours, Continuous Positive Airway Pressure (ICD-10-PCS; 2024-04-12)
PROC: 5A09357 Assistance with Respiratory Ventilation, Less than 24 Consecutive Hours, Continuous Positive Airway Pressure (ICD-10-PCS; 2024-04-13)
PROC: 5A09357 Assistance with Respiratory Ventilation, Less than 24 Consecutive Hours, Continuous Positive Airway Pressure (ICD-10-PCS; 2024-04-16)
PROC: 5A09357 Assistance with Respiratory Ventilation, Less than 24 Consecutive Hours, Continuous Positive Airway Pressure (ICD-10-PCS; 2024-04-17)
PROC: 5A09357 Assistance with Respiratory Ventilation, Less than 24 Consecutive Hours, Continuous Positive Airway Pressure (ICD-10-PCS; 2024-04-18)
DX: A41.9 Sepsis, unspecified organism (principal); J15.9 Unspecified bacterial pneumonia; L89.154 Pressure ulcer of sacral region, stage 4; I50.30 Unspecified diastolic (congestive) heart failure; I13.0 Hypertensive heart and chronic kidney disease with heart failure and stage 1 through stage 4 chronic kidney disease, or unspecified chronic kidney disease; Z68.41 Body mass index [BMI] 40.0-44.9, adult; N17.9 Acute kidney failure, unspecified; G93.49 Other encephalopathy; D64.9 Anemia, unspecified; N49.2 Inflammatory disorders of scrotum; M54.12 Radiculopathy, cervical region; S31.000A Unspecified open wound of lower back and pelvis without penetration into retroperitoneum, initial encounter; X58.XXXA Exposure to other specified factors, initial encounter; E66.01 Morbid (severe) obesity due to excess calories; F41.9 Anxiety disorder, unspecified; G89.4 Chronic pain syndrome; N48.5 Ulcer of penis; N18.9 Chronic kidney disease, unspecified; N31.2 Flaccid neuropathic bladder, not elsewhere classified; D63.8 Anemia in other chronic diseases classified elsewhere; F31.9 Bipolar disorder, unspecified; G47.33 Obstructive sleep apnea (adult) (pediatric); I48.0 Paroxysmal atrial fibrillation; Z79.82 Long term (current) use of aspirin; Z79.84 Long term (current) use of oral hypoglycemic drugs; Z79.899 Other long term (current) drug therapy; Z99.3 Dependence on wheelchair; Z93.3 Colostomy status; Y93.89 Activity, other specified; Y92.89 Other specified places as the place of occurrence of the external cause; Y99.8 Other external cause status
CPT/HCPCS: 36415; 71045; 74177; 80053; 80202; 80305; 81003; 82272; 82728; 82948; 83036; 83540; 83550; 83605; 83735; 83880; 84100; 84145; 85008; 85025; 85610; 85651; 85730; 86140; 87040; 87081; 93306; 94760; 96365; 96375; 97110; 97161; 97530; 97535; 99285; A4314; A4371; A4421; A4649; A6213; A6250; A6253; A6446; A6449; G0378; J1815; J2250; J2543; J3370; J7030; J7050; Q9967